=== PATIENT | male | born 1950 | race Caucasian/White ===

== ENCOUNTER 2018-07-24 06:42 | Day surgery (SDC) | payer OTHER ==
--- NOTE | 2018-07-23 16:59 | GHP ---
CHIEF COMPLAINT: Lower back pain with bilateral lower extremity pain. 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 He denied any weakness in his lower extremities, but the pain was excruciating. He has tried numerous conservative treatments for this, including physical therapy. He has had 2 separate epidural steroid injections. He has had oral steroids and is currently on gabapentin. This has impacted his life to the point where it is very difficult for him to stand for long periods of time. He denies any loss of bowel or bladder control. No saddle numbness or gait disturbance. His biggest complaint is unrelenting lower extremity pain that really started about 8 weeks ago, but has worsened over the course of the last few weeks to months. As mentioned, he has exhausted all conservative management and elected to proceed with surgery, and he is scheduled for surgery with Dr. Menendez to have an L3-4 laminectomy and decompression. CURRENT MEDICATIONS: 1. Metformin 1000 mg b.i.d. 2. Aspirin 81 mg daily that he stopped 2 days ago. 3. Amlodipine 5 mg p.o. daily. 4. Lisinopril 5 mg p.o. daily. 5. Flomax. 6. Crestor 20 mg daily. ALLERGIES: Zomax. FAMILY HISTORY: Noncontributory. PAST SURGICAL HISTORY: 1. Syndesmotic screws, right ankle. 2. Right and left rotator cuff repairs. 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 He lives in the [facility] area. He does not use tobacco. Does not use alcohol. IMMUNIZATIONS: Reported up to date. Tetanus reported up to date. TRAVEL: No recent travel. REVIEW OF SYSTEMS: A complete 10-point review of systems was performed and otherwise negative as noted in HPI. Also noted for 3 stents in LAD 5 years ago. No DE. No chest pain or shortness of breath. Normal cardiac echo post stents. He does have type 2 diabetes, with an A1c of 6.3, creatinine 1.6, with a GFR of 59. PHYSICAL EXAM: GENERAL: This is an awake, alert, oriented male in no acute distress. VITAL SIGNS: Most recent vital signs are stable. HEENT: Pupils equal, round, reactive to light. EOMI. Full visual rajput by confrontation. Ears are patent. Nose is patent. NECK: Soft, supple. No midline tenderness. Full range of motion with flexion, extension, lateral bending and rotation. RESPIRATORY: Deferred. CARDIAC: Deferred. ABDOMEN: Soft, nontender. No peritoneal signs. AND RECTAL: Deferred. NEURO: Patient is awake, alert, oriented to name, place, location, date, time, and situation. Memory is intact to immediate past and current events. Speech: No aphasia, dysarthria, dysphonia. Cranial nerves 2-12 are grossly intact. Motor: Patient has 5/5 strength in all muscle groups of the bilateral upper and lower extremities to include deltoids, biceps, triceps, brachioradialis, wrist flexion, extensors, solid tire finisher intrinsic, fingers, iliopsoas, quadriceps, hamstring, plantar flexion, dorsiflexion and EHL testing. Sensation is grossly intact to light touch. Negative straight leg raise. Negative KATHRIN test. MEDICAL DECISION MAKING/DIAGNOSTIC STUDIES: MRI of the lumbar spine obtained, which showed a central L3 disk herniation. LABORATORY DATA: Defer to Anesthesia for need for this. IMPRESSION: 1. L3 disk herniation. 2. History of diabetes, high cholesterol, with history of stents, with normal echo post stents. 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 He has bilateral leg symptoms as the majority of his pain. He was seen a few times in our office by Dr. Menendez, and we tried to exhaust conservative management as a solution to this problem, but he has failed to improve with the conservative management. We elected and recommended to proceed with an L3/4 laminectomy and decompression. The patient understands this. All risks were discussed. All questions and concerns were answered. We talked about the risks of surgery, such as injury to blood vessels , nerves, risk of infection, postoperative complications, and need for further surgery. The patient understands and agrees. /[id number]/MODL MTDD
[2018-07-24] MEDS ORDERED: THROMBIN (BOVINE) 5,000 UNIT VIAL TP ONE ×2 (07:10→08:17)
[2018-07-24] MEDS ORDERED: BUPIVACAINE/EPI 0.25% 30 ML SDV ONE ×3 (07:11→09:00)
[2018-07-24] MEDS ORDERED: DEPO METHYLPREDNISOLONE 40 MG/ML SDV ONE (07:11)
[2018-07-24] MEDS ORDERED: BACITRACIN 50,000 UNITS/10 ML SYR IRR ONE (07:12)
[2018-07-24] MEDS ORDERED: ceFAZolin 2 GM/DEXTROSE 100 ML IV ONE (07:41)
[2018-07-24] MEDS ORDERED: GABAPENTIN 300 MG CAP PO ONE (07:41)
[2018-07-24] MEDS ORDERED: ACETAMINOPHEN 500 MG TAB PO ONE (07:41)
--- NOTE | 2018-07-24 07:41 | PDHPUP ---
History & Physical Update H&P update statement: This history and physical update is based on an assessment of the patient which was completed after admission or registration (within 24 hours), but prior to the surgery/procedure. H&P update: H&P reviewed & patient examined, no change in patient's condition since H&P completed
[2018-07-24] MEDS ORDERED: MIDAZOLAM 2 MG/2 ML VIAL IVP ONE (07:43)
[2018-07-24] MEDS ORDERED: MIDAZOLAM 2 MG/2 ML VIAL ONE (07:47)
--- NOTE | 2018-07-24 07:47 | PDANEPAE ---
ANE History of Present Illness 68 yo with HNP ANE Past Medical History - Cardiovascular History Hx Hypertension: Yes Hx Coronary Artery / Peripheral Vascular Disease: Yes - Pulmonary History Hx Oxygen in Use at Home: No Hx Sleep Apnea: Yes - Endocrine History Hx Diabetes: Yes ANE Review of Systems Review of Systems: - Exercise capacity Exercise capacity: >=4 METS ANE Patient History - Allergies Allergies/Adverse Reactions: ZOMAX Allergy (Uncoded 07/24/18 07:01) - Home Medications Home medications: home medication list seen and reviewed Home Medications: Aspirin [Aspirin 81mg (*)] 81 mg PO DAILY 07/24/18 [Last Taken Unknown] Lisinopril 5 mg PO 07/24/18 [Last Taken Unknown] Metformin HCl [Metformin 1000 mg] 1,000 mg PO BID 07/24/18 [Last Taken Unknown] Rosuvastatin Calcium [Crestor 20mg (*)] 20 mg PO DAILY 07/24/18 [Last Taken Unknown] Tamsulosin HCl [Flomax 0.4 MG (*)] 0.4 mg PO DAILY 07/24/18 [Last Taken Unknown] amLODIPine BESYLATE [Amlodipine Besylate] 5 mg PO 07/24/18 [Last Taken Unknown] - NPO status NPO Since - Liquids (Date): 07/24/18 NPO Since - Solids (Date): 07/24/18 - Anes Hx Anes Hx: post operative nausea - Smoking Hx Smoking Status: Never smoked ANE Labs/Vital Signs - Vital Signs Blood Pressure: 127/79 Heart Rate: 88 Respiratory Rate: 16 O2 Sat (%): 97 Height: 170.18 cm Weight: 90.718 kg ANE Physical Exam - Airway Neck exam: FROM Mallampati Score: Class 1 Mouth exam: normal dental/mouth exam - Pulmonary Pulmonary: no respiratory distress, clear to auscultation - Cardiovascular Cardiovascular: regular rate and rhythym - ASA Status ASA Status: II ANE Anesthesia Plan Anesthesia Plan: general endotracheal anesthesia
[2018-07-24] MEDS ORDERED: fentaNYL 250 MCG/5 ML INJ ONE (07:57)
[2018-07-24] MEDS ORDERED: PROPOFOL 200 MG/20 ML VIAL ONE ×2 (07:57→09:49)
[2018-07-24] MEDS ORDERED: KETAMINE 500 MG/10 ML VIAL ONE (07:58)
[2018-07-24] MEDS ORDERED: PROPOFOL/EMULSION 500 MG/50 ML BOTTLE IV ONE ×2 (07:58→10:33)
[2018-07-24] MEDS ORDERED: ROSUVASTATIN CALCIUM 20 MG TAB PO SCH (09:00)
[2018-07-24] MEDS ORDERED: TAMSULOSIN HCL 0.4 MG CAP PO SCH (09:00)
--- NOTE | 2018-07-24 11:06 | POSTOPPROG ---
Post Op Note Date of Operation: 07/24/18 Surgeon: Jami Menendez Wire Transfer Clerk: LINDA Mahan Anesthesiologist: MD Sandra Anesthesia: GET(General Endotracheal), Local (Specify) Pre-op Diagnosis: lumbar stenosis BLE pain Post-op Diagnosis: lumbar stensois BLE pain Indication: L3/4 stenosis Procedure: L3/4 laminectomy/decompression Findings: see op report Inf/Abcess present in the surg proc area at time of surgery?: No Depth: Deep Incisional (Fascial) EBL: 50-100 Total fluids administered: see anesthesia record Complications: none
--- NOTE | 2018-07-24 11:08 | SOAPPROG ---
SOAP Progress Note Assessment/Plan: Post Op Visit: S: Awake and alert. Pt with expected lower back pain O: AFVSS/PERRLA/EOMI no droop CN 2-12 grossly intact +lt touch 5/5 BUE/BLE = CDI A/P: 68 yo male that is s/p L3/4 laminectomy/decompression -orders in place -call with any questions or concerns -pt understands and agrees -pt seen by Dr Menendez as well Objective: Vital Signs Temp Pulse Resp BP Pulse Ox 36.7 C 88 16 127/79 H 97 07/24/18 07:33 07/24/18 07:46 07/24/18 07:46 07/24/18 07:46 07/24/18 07:46 07/23/18 07/24/18 07/25/18 05:59 05:59 05:59 Intake Total 0 Output Total 0 Balance 0 ICD10 Worksheet Patient Problems: Problems Problem Status Onset Lumbar radicular pain Acute Lumbar stenosis Acute - ICD10 Problem Qualifiers (1) Lumbar stenosis Qualifiers: Neurogenic claudication status: with neurogenic claudication Qualified Code (s): M48.062 - Spinal stenosis, lumbar region with neurogenic claudication (2) Lumbar radicular pain
[2018-07-24] MEDS ORDERED: PROMETHAZINE HCL 25 MG/ML INJ IVP PRN (11:15)
[2018-07-24] MEDS ORDERED: HYDROmorphONE/DILAUDID 2 MG/ML INJ IVP PRN (11:15)
[2018-07-24] MEDS ORDERED: NALOXONE HCL 0.4 MG/ML INJ IVP PRN (11:15)
[2018-07-24] MEDS ORDERED: DIAZEPAM 5 MG/ML 1 ML SYR IVP PRN (11:15)
[2018-07-24] MEDS ORDERED: ONDANSETRON 4 MG/2 ML VIAL IVP PRN (11:15)
[2018-07-24] MEDS ORDERED: fentaNYL 100 MCG/2 ML INJ IVP PRN (11:15)
--- NOTE | 2018-07-24 11:17 | POSTANESTH ---
Post Anesthetic Evaluation Cardiovascular Status: Normal, Stable Respiratory Status: Normal, Stable Level of Consciousness/Mental Status: Can Participate in Eval Pain Control: Adequate, Prn Tx Ordered Nausea/Vomiting Control: Adequate, Prn Tx Ordered Complications Possibly Related to Anesthesia: None Noted
[2018-07-24 12:26] VITALS: BP 112/64
[2018-07-24] MEDS ORDERED: metFORMIN HCL 500 MG TAB PO SCH (18:00)
--- NOTE | 2018-07-24 23:10 | GOP ---
DATE OF OPERATION: 07/24/2018 SURGEON: Debbie Menendez MD NEUROSURGEON: Debbie Menendez MD. [employer] SALES CONSULTANT: aHyes Mahan PA-C PREOPERATIVE DIAGNOSIS: Neurogenic claudication, severe bilateral radiating leg pain, spinal stenosi s L3-4, acute disk herniation L3-4m spondylolisthesis L4-5, lumbar spondylosis L3-4, L4-5, spinal ana maria nosis L4-5. POSTOPERATIVE DIAGNOSIS: Neurogenic claudication, severe bilateral radiating leg pain, spinal stenos is L3-4, acute disk herniation L3-4m spondylolisthesis L4-5, lumbar spondylosis L3-4, L4-5, spinal st enosis L4-5. PROCEDURE PERFORMED: Lumbar laminectomy, L3-4, with bilateral hemilaminotomies, bilateral decompress ions, with microdiskectomy ([id number]), microscope. FINDINGS: ESTIMATED BLOOD LOSS: 100 cc. INDICATIONS: The patient is a 68-year-old gentleman, who for the last several weeks has had just ter rible radiating pain into his legs from his back. It is symmetric pain on both the left and the righ t. Sometimes the left is worse. Sometimes the right is worse. He has evidence of lumbar spondylosi s at L5-S1 and L4-5, and at L4-5, he has a grade 1 spondylolisthesis, slightly worse in flexion than extension. He has bilateral recess stenosis at that level, but the central canal was open and you co uld make out the individual nerve roots at the L4-5 level. The acute finding on his MRI demonstrated prolapse of the central disk at L3-4 with inferior extrusion below the PLL down behind the vertebral body of L4. There is severe bilateral recess stenosis for the traversing L4 roots, but all of the n erves in the thecal sac were compressed by the stenosis at that level. He had had 2 epidural steroid injections, and they produced transient relief. The one that worked best was at the L3-4 level. Th e one at L4-5 was less successful. But, the symptoms returned and he really was unable to work with the pain. There was also some evidence of stenosis even at L2-3. L1-2 did not look that bad. I sug gested decompression at L3-4 and attempt to remove the disk, and a unilateral approach was offered, b ut I felt there was a chance that we would have to do bilateral decompressions based upon his bilater al symptoms, and I explained to him that we would start unilaterally and then go to the contralateral side as needed. 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 He knew the risk of nerve injury and co ntinued symptoms despite decompression. He also knew he had pathology at other levels of the spine, and our goal was simply to deal with the L3-4 level. He wanted to proceed. DESCRIPTION OF PROCEDURE: The patient was taken to the operating room, placed in the supine position . General anesthesia was begun. He was flipped prone onto the Levi frame. Care was taken to pad all points of contact. His back was sterilely prepped and draped in the usual fashion. A localizing x-ray was taken. We made a midline incision that was about 4.5 cm in length. The subcutaneous tiss ue was dissected using Bovie cautery down through the fascia, and subperiosteal dissection was made d own the left L3-4 lamina. Self-retaining retractor was placed. A localizing x-ray was taken. We dr illed a generous L3-4 laminotomy on the left-hand side. Opened ligamentum flavum under the microscop e. Decompressed the central thecal sac and the left lateral aspect of the spinal canal. We swept th e L4 nerve root medially, and underneath this, there was a free disk fragment herniation on the left- hand side. It was not huge, but we did remove the fragment underneath the L4 root on the left-hand s starla that was seen on the MRI. There was a defect in the anulus of the L3-4 disk centrally. We were able to enter the disk without actually cutting into the anulus itself, and there was disk material u nderneath the PLL. We were able to sweep much of this out, and got out some nice fragments, but ther e was nothing absolutely monstrous that came out, and I really did not want him to wake up with contr alateral pain, and so I elected to extend the lamina to the right-hand side. We did extend the richard a to the right-hand side. We removed only a small portion of the spinous process of L3, and then aric lled a right laminotomy at L3-4, preserving more of the facet on the right than on the left. We open ed the right lateral recess by working in an angle and undercutting the facet joint complex on the ri ght-hand side. We even got the intraoperative ultrasound out to look at the thecal sac, and we could appreciate a small fragment at the L3-4 disk centrally with the ultrasound. We got great right-side d decompression, and I swept underneath the right-hand side. There was no large disk fragment on the right-hand side. We came back to the left where we had a little bit wider exposure, swept it centra lly, and we removed some additional pieces of material under the PLL. We had a great decompression. We used ultrasound to confirm that it was a bilateral decompression at L3-4. Things looked really c lean. There was some bleeding inferiorly behind the vertebral body of L4. We were able to get metic ulous hemostasis. We used Gelfoam for this, and then we eventually removed the Gelfoam, and it was d ry when we closed. We irrigated with antibiotic saline. We irrigated the disk space with large amou nts of antibiotic saline, and closed the incision in multiple layers using Vicryl sutures. Steri-Str ips were applied to the skin. The patient was reversed from anesthesia, extubated, and transferred t o the recovery room in stable condition. COMPLICATIONS: None. /[id number]/MODL
[2018-07-25] MEDS ORDERED: LISINOPRIL 5 MG TAB PO SCH (09:00)
[2018-07-25] MEDS ORDERED: amLODIPine BESYLATE 5 MG TAB PO SCH (09:00)
== END 2018-07-24 15:07 | disposition home or self-care (01) ==
LOC: FSGY 07:31 → EDSTATUS 08:00 → FSGY 15:07
PROC: 8E0WXBZ Computer Assisted Procedure of Trunk Region (ICD-10-PCS; principal; 2018-07-24 08:00)
PROC: BR191ZZ Fluoroscopy of Lumbar Spine using Low Osmolar Contrast (ICD-10-PCS; principal; 2018-07-24 08:00)
PROC: 00NY0ZZ Release Lumbar Spinal Cord, Open Approach (ICD-10-PCS; principal; 2018-07-24 08:00)
DX: M48.062 Spinal stenosis, lumbar region with neurogenic claudication (principal); M51.16 Intervertebral disc disorders with radiculopathy, lumbar region; M43.16 Spondylolisthesis, lumbar region; E11.9 Type 2 diabetes mellitus without complications; Z95.5 Presence of coronary angioplasty implant and graft; Z79.84 Long term (current) use of oral hypoglycemic drugs
CPT/HCPCS: J0690; J1030; J2250; J2704; J3010